=== PATIENT | female | born 1940 | race Caucasian/White ===

== ENCOUNTER 2022-08-26 05:41 | Day surgery (SDC) | payer MEDICARE, OTHER ==
[2022-08-22 13:00] VITALS: BMI 19.5
[2022-08-26] MEDS ORDERED: Rocuronium Bromide 10 MG/ML (10ML VIAL) ONE (08:12)
[2022-08-26] MEDS ORDERED: Ondansetron PF 4 MG/2 ML Vial ONE (08:12)
[2022-08-26] MEDS ORDERED: Glycopyrrolate 0.2 MG/ML 5 ML SYRINGE ONE (08:12)
[2022-08-26] MEDS ORDERED: Fentanyl 100 MCG/2 ML VIAL ONE (08:12)
[2022-08-26] MEDS ORDERED: Dexamethasone 20 MG/5 ML VIAL ONE (08:12)
[2022-08-26] MEDS ORDERED: Midazolam HCl 2 mg/2 ml Vial ONE (08:12)
[2022-08-26] MEDS ORDERED: PROPOFOL 20 ML ONE (08:12)
[2022-08-26] MEDS ORDERED: Lidocaine 1% w/Epinephrine 1:100K 20 ML VIAL ONE (08:45)
[2022-08-26] MEDS ORDERED: PHENYLEPHRINE-NS 100 MCG/ML 10 ML SYRINGE ONE (08:54)
== END 2022-08-26 10:20 | disposition home or self-care (01) ==
LOC: CSHSDC 05:41
PROVIDERS: ATTEND Otolaryngology Plastic Surgery within the Head & Neck
PROC: 0WB30ZZ Excision of Oral Cavity and Throat, Open Approach (ICD-10-PCS; principal; 2022-08-26)
DX: K13.79 Other lesions of oral mucosa (principal); L30.8 Other specified dermatitis; Z88.6 Allergy status to analgesic agent; I10 Essential (primary) hypertension; Z79.899 Other long term (current) drug therapy
CPT/HCPCS: 88305; J1100; J2250; J2405; J2704; J3010